=== PATIENT | female | born 1965 | race Caucasian/White ===

== ENCOUNTER → 2017-05-17 | Outpatient (CLI) | payer OTHER | LOC: MC.RAD 10:00 | DX: Z12.31 Encounter for screening mammogram for malignant neoplasm of breast (principal) ==

== ENCOUNTER 2019-01-20 20:11 | Emergency (ER) | payer OTHER ==
[~2019-01-20] VITALS: Ht 170.2 cm; Wt 68.2 kg
[2019-01-20 20:14] VITALS: BP 143/81; TEMP 98.1
[2019-01-20] MEDS ORDERED: PRILOSEC 20MG20 MG PO (21:54)
[2019-01-20 22:02] VITALS: PULSE 94
== END 2019-01-20 22:02 | disposition home or self-care (01) ==
LOC: COL.ER 20:11
DX: K20.9 Esophagitis, unspecified (principal)
CPT/HCPCS: Q9967

== ENCOUNTER → 2019-10-01 | Outpatient (CLI) | payer OTHER ==
[~2019-10-01] MED LIST: PRILOSEC 20MG20 MG PO
== END ==
LOC: MC.RAD 08-31 11:30
DX: Z12.31 Encounter for screening mammogram for malignant neoplasm of breast (principal)

== ENCOUNTER 2021-01-05 04:50 | Emergency (ER) | payer MEDICARE ==
[~2021-01-05] VITALS: Ht 170.2 cm; Wt 104.5 kg
[2021-01-05 04:57] VITALS: TEMP 97.9
[2021-01-05 05:28] LABS: BASO # 0.1 (0.0-0.2); BASO % 0.4 % (0.0-2.0); EOS # 0.2 (0.0-0.7); EOS % 1.5 % (0-4.0); GRAN # 9.3 (1.4-6.5); GRAN % 76.2 % (42.2-75.2); HEMOGLOBIN 11.1 g/dl (12.5-16.0); LYMPH # 2.1 (1.2-3.4); LYMPH % 16.9 % (20.0-51.0); MEAN CELL VOLUME 76 fl (80.0-100.0); MEAN CORPUSCULAR HEMOGLOBIN 23 pg (27.0-31.0); MEAN CORPUSCULAR HGB CONC 30 g/dl (33.0-37.0); MEAN PLATELET VOLUME 9.3 fl (7.4-10.4); MONO # 0.6 (0.1-0.6); MONO % 4.8 % (1.7-9.3); PLATELET COUNT 377 K/mm3 (130-400); RED BLOOD COUNT 4.84 M/mm3 (4.10-5.30); REDCELL DISTRIBUTION WIDTH-CV 17.8 % (11.5-14.5)
[2021-01-05 05:39] LABS: ALANINE AMINOTRANSFERASE 29 U/L (4-34); ALBUMIN 4.2 gm/dL (3.5-5.0); ALKALINE PHOSPHATASE 126 U/L (50-136); ANION GAP 8 mmol/L (7-16); AST,SGOT 77 U/L (15-37); BILIRUBIN,TOTAL 0.8 mg/dL (0.0-1.0); BLOOD UREA NITROGEN 21 mg/dL (7-17); CALCIUM 9.7 mg/dL (8.4-10.2); CARBON DIOXIDE 21 mmol/L (22-30); CHLORIDE 107 mmol/L (98-107); CREATININE, serum 0.82 (0.52-1.25); GLUCOSE 128 mg/dL (74-106); POTASSIUM 3.8 mmol/L (3.4-5.0); SODIUM 136 mmol/L (137-145)
[2021-01-05] MEDS ORDERED: DESYREL 100MG100 MG PO (05:39)
[2021-01-05 05:42] LABS: INR 1.2 (0.8-3.0); PROTHROMBIN TIME 12.9 SECONDS (9.7-12.8)
[2021-01-05 05:44] LABS: C-REACTIVE PROTEIN 2.4 mg/dL (0.0-0.9); LIPASE 215 U/L (23-300)
[2021-01-05 05:51] LABS: TROPONIN-I < 0.012 ng/mL (0.000-0.035)
[2021-01-05] MEDS ORDERED: PRILOSEC 20MG20 MG PO (07:41)
[2021-01-05 08:32] VITALS: BP 112/66; PULSE 82
[2021-01-06] MEDS ORDERED: OMNICEF 300MG300 MG PO (18:32)
[2021-01-20] MEDS ORDERED: OMNICEF 300MG300 MG PO (06:55)
== END 2021-01-05 08:34 | disposition home or self-care (01) ==
LOC: COL.ER 04:50
PROVIDERS: Emergency Medicine
DX: R10.11 Right upper quadrant pain (principal)
CPT/HCPCS: J2270; J2405; J7030

== ENCOUNTER 2021-01-06 16:22 | Emergency (ER) | payer MEDICARE ==
[~2021-01-06] VITALS: Ht 167.6 cm; Wt 104.5 kg
[~2021-01-06 16:22] MED LIST changes: +DESYREL 100MG100 MG PO
[2021-01-06 17:43] LABS: BASO # 0.1 (0.0-0.2); BASO % 0.6 % (0.0-2.0); EOS # 0.2 (0.0-0.7); EOS % 2.7 % (0-4.0); GRAN # 5.5 (1.4-6.5); GRAN % 65.2 % (42.2-75.2); LYMPH # 2.2 (1.2-3.4); LYMPH % 26.1 % (20.0-51.0); MEAN CELL VOLUME 77 fl (80.0-100.0); MEAN CORPUSCULAR HEMOGLOBIN 23 pg (27.0-31.0); MEAN CORPUSCULAR HGB CONC 30 g/dl (33.0-37.0); MEAN PLATELET VOLUME 9.5 fl (7.4-10.4); MONO # 0.4 (0.1-0.6); PLATELET COUNT 369 K/mm3 (130-400); RED BLOOD COUNT 4.79 M/mm3 (4.10-5.30); REDCELL DISTRIBUTION WIDTH-CV 18.1 % (11.5-14.5)
[2021-01-06 17:48] LABS: COLLECTION METHOD CLEAN CATCH
[2021-01-06 17:56] LABS: C-REACTIVE PROTEIN 3.4 mg/dL (0.0-0.9)
[2021-01-06 18:01] LABS: ALBUMIN 4.3 gm/dL (3.5-5.0); BILIRUBIN,TOTAL 0.8 mg/dL (0.0-1.0); CALCIUM 9.2 mg/dL (8.4-10.2); CREATININE, serum 0.86 (0.52-1.25); TOTAL PROTEIN 8.1 gm/dL (6.4-8.2)
[2021-01-06 18:09] LABS: MUCOUS Present /lpf; PH 5 (5-8); SQUAMOUS EPITHELIAL 0-2 /hpf; URINE APPEARANCE Hazy; URINE BACTERIA Rare /hpf; URINE BILIRUBIN Negative (NEGATIVE); URINE BLOOD Negative (NEGATIVE); URINE COLOR Yellow; URINE GLUCOSE Negative (NEGATIVE); URINE KETONE Negative (NEGATIVE); URINE LEUKOCYTE ESTERASE Trace (NEGATIVE); URINE NITRATE Positive (NEGATIVE); URINE PROTEIN(semi-quant) Negative (NEGATIVE); URINE RBC 0-2 /hpf
[2021-01-06] MEDS ORDERED: OMNICEF 300MG300 MG PO (18:32)
[2021-01-06 18:58] VITALS: BP 146/76; PULSE 83; TEMP 98.4
[2021-01-20] MEDS ORDERED: OMNICEF 300MG300 MG PO (06:55)
== END 2021-01-06 18:58 | disposition home or self-care (01) ==
LOC: COL.ER 16:22
PROVIDERS: Nurse Practitioner Primary Care
DX: N39.0 Urinary tract infection, site not specified (principal); K21.9 Gastro-esophageal reflux disease without esophagitis; F03.90 Unspecified dementia, unspecified severity, without behavioral disturbance, psychotic disturbance, mood disturbance, and anxiety; Z98.84 Bariatric surgery status; Z79.899 Other long term (current) drug therapy
CPT/HCPCS: J0780; J2405